=== PATIENT | female | born 1975 | race Caucasian/White ===

== ENCOUNTER 2018-10-20 08:24 | Outpatient (CLI) | payer OTHER ==
[~2018-10-20] VITALS: Ht 152.4 cm; Wt 121.6 kg
[~2018-10-20 08:24] MED LIST: ALLEGRA ALLERG180 MG PO; AMOX1TAB12 PO; AMOXICILLIN500 MG; AVAPRO300 MG PO; CORTISPORIN EAR10 M1 OT; COZAAR50 MG; GILTUSS TR TAB1 EACH PO; GLIMEPIRIDE4 MG; GLUMETZA1000 MG; HYDRODIURIL12.5 MG; PNEU16DI2; ZITHROMAX500 MG PO; ZYRTEC10 MG PO
== END 2018-10-20 08:40 | disposition home or self-care (01) ==
LOC: OFIC 805 08:24
DX: J06.9 Acute upper respiratory infection, unspecified (principal); H93.8X3 Other specified disorders of ear, bilateral; R05 Cough; J00 Acute nasopharyngitis [common cold]; J32.8 Other chronic sinusitis